=== PATIENT | male | born 1950 | race Two or more races ===

== ENCOUNTER 2018-07-10 12:40 | Outpatient (CLI) | payer MEDICARE, BC | END 2018-07-10 23:59 | disposition home or self-care (01) | LOC: ER 12:40 | PROVIDERS: ATTEND Nurse Practitioner Acute Care | DX: Z45.2 Encounter for adjustment and management of vascular access device (principal); Z79.899 Other long term (current) drug therapy | CPT/HCPCS: 36569; A4606; C1751; C1769; Z7610 ==